=== PATIENT | male | born 1935 | race Caucasian/White ===

== ENCOUNTER 2020-01-31 02:40 | Outpatient (CLI) | payer MEDICARE, SELFPAY ==
[2020-01-31 10:05] LABS: CREATININE 1.38 mg/dL (0.70-1.30); Estimated GFR 49.33 (mL/min/1.73m2)
[2020-01-31] MEDS: Normal Saline - Diluent 50 ML VIAL IV ×2 (10:11→10:12)
[2020-01-31] MEDS: Omnipaque 350 MG/ML 100 ML BTL IJ (10:11)
--- NOTE | 2020-01-31 10:35 | DI.CT_ITS ---
EXAM: CT ABDOMEN PELVIS WO/W CLINICAL HISTORY: BLADDER OUTLET OBSTRUCTION,ELEVATED PSA,EVALUATE SIZE AND FOR MASS OF PROSTATE TECHNIQUE: CT examination of the abdomen and pelvis was performed utilizing CT urogram protocol with intravenous infusion of 100 cc of Omnipaque 350. COMPARISON: No exams were available for comparison FINDINGS: Images obtained through the lung bases are unremarkable. There is a large hiatal hernia. There is c ardiomegaly. There is poorly defined mixed lytic/sclerotic appearance of the sacrum and to a lesser degree the jt ac bones bilaterally. A nonspecific sclerotic focus is noted in the pubic bone on the left. 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 There is fixation of the p roximal right femur in place. The liver and spleen are unremarkable in appearance as is the pancreas. Gallbladder and bile ducts a re CT normal. Abdominal aorta is of normal diameter. No major visceral artery abnormality seen. No significant abdominal wall hernia. No significant abdominal or pelvic adenopathy. The appendix is normal. There is no evidence of diverticulitis or bowel obstruction. The adrenals are normal in appearance bilaterally. There are multiple bilateral renal cysts. There is no renal mass hydronephrosis or nephrolithiasis. Ureters are unremarkable in appearance. There i s a Rasmussen catheter in the urinary bladder. There is significant wall thickening of the urinary bladd er. There is increased fat attenuation in the pelvis and particularly in the presacral fat, correlation r equested regarding any prior radiation therapy of the pelvis, alternatively the possibility of local metastatic disease would have to be raised. 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 Abnormal fat attenuation of the pelvis, local spread of neoplastic disease versus prior radiation the rapy, please correlate clinically. Urinary bladder wall thickening, please correlate clinically regarding prior radiation therapy versus cystitis. No significant upper urinary tract pathology identified.
== END 2020-01-31 03:00 ==
PROVIDERS: PCP Family Medicine; Visit Provider Family Medicine
DX: N32.0 Bladder-neck obstruction (principal); Z13.89 Encounter for screening for other disorder; R97.20 Elevated prostate specific antigen [PSA]; N32.89 Other specified disorders of bladder; K44.9 Diaphragmatic hernia without obstruction or gangrene; I51.7 Cardiomegaly; M89.8X8 Other specified disorders of bone, other site
CPT/HCPCS: 74178; 82565; J3490

== ENCOUNTER 2020-02-07 01:24 | Outpatient (CLI) | payer MEDICARE, SELFPAY ==
--- NOTE | 2020-02-07 07:45 | DI.US_ITS ---
EXAM: US PROSTATE BIOPSY CLINICAL HISTORY: ultrasound guided biopsy, ELEVATED PSA, ? PRIMARY OF PROSTATE,R97.20. Right kaushal e. COMPARISON: No exams were available for comparison Procedure: Ultrasound-guided prostate biopsy was performed by Dr. Murillo. FINDINGS: Prostatic volume is 30.9 cc. Please refer to the procedure report for complete details. IMPRESSION: Ultrasound-guided prostate biopsy. DATA REPOSITORY:
--- NOTE | 2020-02-07 10:00 | PROST_PTH ---
PATIENT: Sanford Calles LOC: [facility] U#:[id number] AGE/SX: 84/M ROOM: RE02/07/[address]: Jesus Murillo MD : [id number] BED: DIS: 02/07/2020 SPEC #: [id number] RECD: 02/07/20 12:21 STATUS: SILVINO RE #: [id number] BARB: 02/07/20 10:[address]: Jesus Murillo DEPT: Surgical Specimen RECD BY: Natalie Meredith ENTERED: 02/07/20 12:23 SP TYPE: PROST OTHR DR: Joseluis Wilks Tissues: 1 - PROSTATE NEEDLE BIOPSY 2 - PROSTATE NEEDLE BIOPSY 3 - PROSTATE NEEDLE BIOPSY 4 - PROSTATE NEEDLE BIOPSY 5 - PROSTATE NEEDLE BIOPSY 6 - PROSTATE NEEDLE BIOPSY 7 - PROSTATE NEEDLE BIOPSY 8 - PROSTATE NEEDLE BIOPSY 9 - PROSTATE NEEDLE BIOPSY 10 - PROSTATE NEEDLE BIOPSY 11 - PROSTATE NEEDLE BIOPSY 12 - PROSTATE NEEDLE BIOPSY Procedures: GROSS AND MICRO LEVEL 4 Comments: [id number]
--- NOTE | 2020-02-07 10:16 | W.PM.OP ---
Date of service: 02/07/20 Time of Service: 09:31 Operative Note Operative Note DATE OF PROCEDURE: 02/07/20 PRE-OP DIAGNOSIS: Elevated PSA POST-OP DIAGNOSIS: same PROCEDURE: Transrectal ultrasound-guided biopsy of the prostate SURGEON: Jesus Murillo ANESTHESIA: local ESTIMATED BLOOD LOSS: 5 PATHOLOGY: other (Prostate biopsies) COMPLICATIONS: None Patient was transported to: other Patient's condition: stable Indications: This is an 84-year-old gentleman who presented to his primary care provider with urinary retention. He had a Rasmussen catheter placed. He has a family history of prostate cancer. The PSA for this gentleman was elevated 26 ng/mL. He presents for ultrasound-guided biopsy of the prostate Findings: Prostate volume 31 cc Hypoechoic area in the left peripheral zone Procedure Description: The patient was given a pre-procedure antibiotic and mechanical bowel prep. He was brought to the radiology suite on 02/07/2020. He was placed in the left lateral position. Transrectal imaging the prostate was then performed using a variable megahertz transducer. The prostate was imaged in transverse and longitudinal planes. The prostatic volume was calculated at 31 cc. The Rasmussen catheter balloon and catheter itself were easily identifiable. The transition zone was not markedly enlarged. On the left side of the peripheral zone, there did appear to be an irregular shaped hypoechoic area. The seminal vesicles appeared normal. A periprosthetic nerve block was performed using 1% lidocaine. A total of 12 laterally directed biopsies were then taken and sent to pathology for permanent section. The patient tolerated this procedure well with no complications. He was cautioned to watch for any signs of fever/urosepsis. He should also expect some blood in his catheter bag and blood from the rectum when wiping with toilet tissue.
== END 2020-02-07 01:44 ==
PROVIDERS: PCP Family Medicine; Visit Provider Urology
DX: R97.20 Elevated prostate specific antigen [PSA] (principal); R33.8 Other retention of urine; I10 Essential (primary) hypertension; C61 Malignant neoplasm of prostate
CPT/HCPCS: 55700; 76942; 76872; 88305; 99212; 99213

== ENCOUNTER → 2020-02-18 14:06 | Outpatient (BNVA) | payer MEDICARE, SELFPAY | PROVIDERS: PCP Family Medicine; Referring Provider Family Medicine; Visit Provider Urology | DX: C61 Malignant neoplasm of prostate (principal); R33.8 Other retention of urine; Z46.6 Encounter for fitting and adjustment of urinary device; I10 Essential (primary) hypertension | CPT/HCPCS: 51702; 99214 ==

== ENCOUNTER → 2020-03-18 15:00 | Outpatient (BNVA) | payer MEDICARE, SELFPAY | PROVIDERS: PCP Family Medicine; Referring Provider Family Medicine; Visit Provider Nurse Practitioner Gerontology | DX: C61 Malignant neoplasm of prostate (principal); R33.9 Retention of urine, unspecified; Z20.828 Contact with and (suspected) exposure to other viral communicable diseases | CPT/HCPCS: 96402; 99213; J9217 ==

== ENCOUNTER → 2020-04-21 13:54 | Outpatient (BNVA) | payer MEDICARE, SELFPAY | PROVIDERS: PCP Family Medicine; Referring Provider Family Medicine; Visit Provider Nurse Practitioner Gerontology | DX: C61 Malignant neoplasm of prostate (principal); R97.20 Elevated prostate specific antigen [PSA]; R33.9 Retention of urine, unspecified; I10 Essential (primary) hypertension | CPT/HCPCS: 96402; 99213; J9217 ==

== ENCOUNTER → 2020-05-22 13:01 | Outpatient (BNVA) | payer MEDICARE, SELFPAY | PROVIDERS: PCP Family Medicine; Referring Provider Family Medicine; Visit Provider Nurse Practitioner Gerontology | DX: C61 Malignant neoplasm of prostate (principal); R33.9 Retention of urine, unspecified; I10 Essential (primary) hypertension | CPT/HCPCS: 96402; 99213; J9217 ==

== ENCOUNTER → 2020-06-23 10:16 | Outpatient (BNVA) | payer MEDICARE, SELFPAY | PROVIDERS: PCP Family Medicine; Referring Provider Family Medicine; Visit Provider Nurse Practitioner Gerontology | DX: C61 Malignant neoplasm of prostate (principal); R33.8 Other retention of urine; I10 Essential (primary) hypertension | CPT/HCPCS: 96402; 99213; J9217 ==

== ENCOUNTER 2020-06-23 11:12 | Outpatient (REF) | payer MEDICARE, SELFPAY ==
[2020-06-23 18:55] LABS: PSA, Diagnostic <0.1 ng/mL (0.0-6.5)
[2020-06-26 14:29] LABS: Testosterone, Total 8.1 ng/dL (240-950)
== END 2020-06-23 11:32 ==
LOC: LBN 11:12
PROVIDERS: PCP Family Medicine; Visit Provider Nurse Practitioner Gerontology
DX: C61 Malignant neoplasm of prostate (principal)
CPT/HCPCS: 84403; 84153

== ENCOUNTER → 2020-07-28 14:25 | Outpatient (BNVA) | payer MEDICARE, SELFPAY | PROVIDERS: PCP Family Medicine; Referring Provider Family Medicine; Visit Provider Nurse Practitioner Gerontology | DX: C61 Malignant neoplasm of prostate (principal); R33.8 Other retention of urine; I10 Essential (primary) hypertension | CPT/HCPCS: 96402; 99213; J9217 ==

== ENCOUNTER → 2020-10-29 12:48 | Outpatient (BNVA) | payer MEDICARE, SELFPAY | PROVIDERS: PCP Family Medicine; Referring Provider Family Medicine; Visit Provider Nurse Practitioner Gerontology | DX: C61 Malignant neoplasm of prostate (principal); R97.20 Elevated prostate specific antigen [PSA]; R33.9 Retention of urine, unspecified | CPT/HCPCS: 96402; J9217 ==

== ENCOUNTER 2020-10-29 16:02 | Outpatient (REF) | payer MEDICARE, SELFPAY ==
[2020-10-29 22:42] LABS: PSA, Diagnostic <0.1 ng/mL (0.0-6.5)
[2020-11-02 16:29] LABS: Testosterone, Total 7.6 ng/dL (240-950)
== END 2020-10-29 16:03 | disposition home or self-care (01) ==
LOC: LBN 16:02
PROVIDERS: PCP Family Medicine; Visit Provider Nurse Practitioner Gerontology
DX: C61 Malignant neoplasm of prostate (principal)
CPT/HCPCS: 84403; 84153

== ENCOUNTER → 2021-05-06 09:20 | Outpatient (BNVA) | payer MEDICARE, SELFPAY | PROVIDERS: PCP Family Medicine; Referring Provider Family Medicine; Visit Provider Nurse Practitioner Gerontology | DX: C61 Malignant neoplasm of prostate (principal); R33.9 Retention of urine, unspecified | CPT/HCPCS: 96402; J9217 ==

== ENCOUNTER → 2021-11-04 14:31 | Outpatient (BNVA) | payer MEDICARE, SELFPAY | PROVIDERS: PCP Family Medicine; Referring Provider Family Medicine; Visit Provider Nurse Practitioner Gerontology | DX: R97.20 Elevated prostate specific antigen [PSA] (principal); R33.9 Retention of urine, unspecified; C61 Malignant neoplasm of prostate | CPT/HCPCS: 96402; J9217 ==

== ENCOUNTER → 2022-05-05 14:16 | Outpatient (BNVA) | payer MEDICARE, SELFPAY | PROVIDERS: PCP Family Medicine; Referring Provider Family Medicine; Visit Provider Nurse Practitioner Gerontology | DX: R33.8 Other retention of urine (principal); C61 Malignant neoplasm of prostate | CPT/HCPCS: 36415; 96402; J9217 ==

== ENCOUNTER 2022-05-05 17:47 | Outpatient (REF) | payer MEDICARE, SELFPAY ==
[2022-05-08 11:14] LABS: PSA, Ultrasensitive <0.01 ng/mL (<= 7.2)
[2022-05-08 12:51] LABS: Testosterone, Total <7.0 ng/dL (240-950)
== END 2022-05-05 17:48 | disposition home or self-care (01) ==
LOC: LBN 17:47
PROVIDERS: PCP Family Medicine; Visit Provider Nurse Practitioner Gerontology
DX: C61 Malignant neoplasm of prostate (principal); R97.20 Elevated prostate specific antigen [PSA]
CPT/HCPCS: 84153; 84403